=== PATIENT | female | born 1980 ===

== ENCOUNTER 2018-06-18 10:00 | Day surgery (SDC) | payer BC ==
[~2018-06-18 10:00] MED LIST: Dexamethasone 4 MG/ML 5 ML MDV ONE; HYDROmorphone 0.5 MG/0.5 ML Syringe ONE; Ketorolac 30 MG/ML SDV ONE; Lactated Ringers 1,000 ML IV SCH; Lactated Ringers 1,000 ML ONE; Lidocaine 1% 4 ML ONE; Lidocaine 1%/Sod Bicarbonate in NS 8.4% 1 ML Syringe IDERM PRN; Midazolam 1 MG/ML 2 ML SDV ONE; Ondansetron 4 MG/2 ML SDV ONE; Propofol 200 MG/20 ML SDV ONE; Rocuronium 50 MG/5 ML Vial ONE; Sodium Chloride 0.9% 10 ML Syringe FLUSH PRN; ceFAZolin 1 GM Vial ONE; fentaNYL 250 MCG/5 ML SDV ONE
[2018-06-18] MEDS ORDERED: Scopolamine 1.5 MG Transdermal Patch TRDERM ONE (10:56)
--- NOTE | 2018-06-18 10:57 | PCM.PREANE ---
Preanesthetic Assessment - Procedure Proposed Procedure: TVH - Anesthesia/Transfusion/Family Hx Anesthesia History: No Prior Anesthesia (patient states she gets motions sickness easily) Family History of Anesthesia Reaction: No Transfusion History: No Prior Transfusion(s) - Review of Systems General: No Symptoms Pulmonary: No Symptoms Cardiovascular: Other (HTN- has not taken her BP med for 3 days ) Gastrointestinal: No Symptoms Neurological: No Symptoms Other: Reports: Anxiety - Physical Assessment NPO Status Date: 06/17/18 NPO Status Time: 21:00 Pulse: 90 O2 Sat by Pulse Oximetry: 97 Respiratory Rate: 16 Blood Pressure: 169/94 Temperature: 37.3 C Height: 1.5 m Weight: 81 kg ASA Class: 2 Mental Status: Alert & Oriented x3 Airway Class: Mallampati = 1 Dentition: Reports: Normal Dentition Thyro-Mental Finger Breadths: 3 Mouth Opening Finger Breadths: 3 ROM/Head Extension: Full Lungs: Clear to Auscultation, Normal Respiratory Effort Cardiovascular: Regular Rate, Regular Rhythm - Lab Values: Laboratory Last Values Urine HCG, Qual Negative (NEGATIVE) 06/18/18 10:12 - Allergies Allergies/Adverse Reactions: Allergies Allergy/AdvReac Type Severity Reaction Status Date / Time No Known Allergies Allergy Verified 06/17/18 14:44 - Blood Blood Available: No Product(s) Available: None - Anesthesia Plan Pre-Op Medication Ordered: None - Acknowledgements Anesthesia Type Planned: General Anesthesia (OETT, scopolamine patch ordered ) Pt an Appropriate Candidate for the Planned Anesthesia: Yes Alternatives and Risks of Anesthesia Discussed w Pt/Guardian: Yes Pt/Guardian Understands and Agrees with Anesthesia Plan: Yes PreAnesthesia Questionnaire HEENT History: Reports: Impaired Vision, Other (See Below) Other HEENT History: Wears glasses Cardiovascular History: Reports: Hypertension Respiratory History: Reports: None Gastrointestinal History: Reports: None Genitourinary History: Reports: None DANCE HALL HOST/HOSTESS History: Reports: None Musculoskeletal History: Reports: None Neurological History: Reports: None Psychiatric History: Reports: None Endocrine/Metabolic History: Reports: None Hematologic History: Reports: None Immunologic History: Reports: None Oncologic (Cancer) History: Reports: None Dermatologic History: Reports: None - Past Surgical History Head Surgeries/Procedures: Reports: None Cardiovascular Surgical History: Reports: None Respiratory Surgical History: Reports: None GI Surgical History: Reports: None Female Surgical History: Reports: None Male Surgical History: Reports: None Endocrine Surgical History: Reports: None Neurological Surgical History: Reports: None Musculoskeletal Surgical History: Reports: None Oncologic Surgical History: Reports: None - SUBSTANCE USE Smoking Status *Q: Never Smoker Second Hand Smoke Exposure: No Recreational Drug Use History: No - HOME MEDS Home Medications: Home Meds Lisinopril/Hydrochlorothiazide [Lisinopril-Hctz 20-25 mg Tab] 1 tab PO DAILY [History] - CURRENT (IN HOUSE) MEDS Current Meds: Current Medications Lactated Ringer's (Ringers, Lactated) 1,000 mls @ 125 mls/hr IV ASDIRECTED TRENT Stop: 06/18/18 22:00 Lidocaine/Sodium Bicarbonate (Buffered Lidocaine 1% In Ns 8.4%) 0.25 ml IDERM ONETIME PRN PRN Reason: Prior to IV Start Stop: 06/18/18 18:00 Sodium Chloride (Saline Flush) 10 ml FLUSH ASDIRECTED PRN PRN Reason: Keep Vein Open Stop: 06/18/18 18:00 Discontinued Medications Cefazolin Sodium (Ancef) Confirm Administered Dose 2 gm .ROUTE .STK-MED ONE Stop: 06/18/18 08:43 Dexamethasone (Dexamethasone) Confirm Administered Dose 20 mg .ROUTE .STK-MED ONE Stop: 06/18/18 08:43 Fentanyl (Sublimaze) Confirm Administered Dose 250 mcg .ROUTE .STK-MED ONE Stop: 06/18/18 08:44 Hydromorphone HCl (Dilaudid) Confirm Administered Dose 0.5 mg .ROUTE .STK-MED ONE Stop: 06/18/18 08:43 Lidocaine HCl (Xylocaine-Mpf 1%) Confirm Administered Dose 4 mls @ as directed .ROUTE .STK-MED ONE Stop: 06/18/18 08:43 Lactated Ringer's (Ringers, Lactated) Confirm Administered Dose 1,000 mls @ as directed .ROUTE .STK-MED ONE Stop: 06/18/18 08:43 Ketorolac Tromethamine (Toradol) Confirm Administered Dose 30 mg .ROUTE .STK- MED ONE Stop: 06/18/18 08:43 Midazolam HCl (Versed 1 Mg/Ml) Confirm Administered Dose 2 mg .ROUTE .STK-MED ONE Stop: 06/18/18 08:43 Ondansetron HCl (Zofran) Confirm Administered Dose 4 mg .ROUTE .STK-MED ONE Stop: 06/18/18 08:43 Propofol (Diprivan 20 Ml) Confirm Administered Dose 200 mg .ROUTE .STK-MED ONE Stop: 06/18/18 08:43 Rocuronium [place] (Zemuron) Confirm Administered Dose 50 mg .ROUTE .STK-MED ONE Stop: 06/18/18 08:43
[2018-06-18] MEDS ORDERED: Propofol 200 MG/20 ML SDV ONE (12:47)
[2018-06-18] MEDS: Sodium Chloride 0.9% 50 ML SDV ONE ×2 (13:00→13:24)
[2018-06-18] MEDS: Lidocaine 1% with EPINEPHrine 1:100,000 20 ML MDV ONE ×2 (13:00→13:23)
[2018-06-18] MEDS ORDERED: Ketamine 500 mg/10 ML MDV ONE (13:18)
[2018-06-18] MEDS ORDERED: HYDROmorphone 0.5 MG/0.5 ML Syringe ONE (13:18)
[2018-06-18] MEDS ORDERED: Haloperidol Lactate 5 MG/ML SDV IVPUSH ONE (13:32)
[2018-06-18] MEDS ORDERED: diphenhydrAMINE 50 MG/ML SDV IVPUSH PRN (13:32)
[2018-06-18] MEDS ORDERED: fentaNYL 100 MCG/2 ML SDV IVPUSH PRN (13:32)
[2018-06-18] MEDS ORDERED: HYDROmorphone 0.5 MG/0.5 ML SYRINGE IV PRN (13:32)
[2018-06-18] MEDS ORDERED: Meperidine 50 MG/ML Vial IVPUSH PRN (13:32)
[2018-06-18] MEDS ORDERED: fentaNYL 250 MCG/5 ML SDV ONE (14:15)
[2018-06-18] MEDS ORDERED: Lactated Ringers 1,000 ML ONE (14:47)
--- NOTE | 2018-06-18 15:22 | PCM.POSTAN ---
POST ANESTHESIA ASSESSMENT - MENTAL STATUS Mental Status: Somnolent - VITAL SIGNS Pulse Rate: 77 SaO2: 98 Resp Rate: 8 Blood Pressure: 120/68 Temperature: 36.3 C - RESPIRATORY Respiratory Status: Respiratory Rate WNL, Airway Patent, O2 Saturation Stable, Supplemental Oxygen - CARDIOVASCULAR CV Status: Pulse Rate WNL, Blood Pressure Stable - GASTROINTESTINAL GI Status: No Symptoms - PAIN Pain Score: 0 - POST OP HYDRATION Hydration Status: Adequate & Stable - OBSERVATIONS Free Text/Narrative:: no anesthesia complications noted
--- NOTE | 2018-06-18 15:43 | PCM.OPNOTE ---
- General Post-Op/Procedure Note Date of Surgery/Procedure: 06/18/18 Operative Procedure(s): Transvaginal hysterectomy, bilateral salpingectomy, anterior and posterior repair and transvaginal tape mid urethral sling Findings: Overall normal-appearing cervix, uterus and tubes. Visualized portions of the ovaries were normal with cysts present within the ovaries bilaterally. Cystocele and rectocele on exam. Pre Op Diagnosis: Abnormal uterine bleeding with menorrhagia, pelvic organ prolapse, cystocele and rectocele and stress urinary incontinence Post-Op Diagnosis: Same Anesthesia Technique: General ET Tube Primary Surgeon: Gómez Lozano Anesthesia Provider: Lucho Burgos Industrial Furnace Fabricator: Pedro Chauhan Industrial Furnace Fabricator: Chely Knowles Reason Industrial Furnace Fabricator Was Necessary: Assist with retraction and reduction of morbidity and mortality Role of Industrial Furnace Fabricator: Retraction and visualization of structures Pathology: Cervix, uterus and bilateral fallopian tubes Fluid Replacement, Intraop: 2,100 Output, Urine Amount: 125 EBL in mLs: 400 Complications: None Condition: Good Free Text/Narrative:: Intake & Output 06/18/18 06/18/18 06/18/18 06:59 14:59 22:59 Output Total 125 Balance -125 Procedure in detail: The patient was seen in the preoperative holding area and risks, benefits, indications, and alternatives of the procedure were reviewed with the patient and she desired to proceed with a total vaginal hysterectomy, bilateral salpingectomy, anterior and posterior repair and mid urethral sling. Consents were signed. The patient was given general anesthesia with an endotracheal tube that was placed without difficulty. The patient was placed in dorsal lithotomy position , prepped, and draped in normal sterile fashion. A weighted speculum was placed into the vagina and the anterior lip of the cervix was grasped with the single-tooth tenaculum. A second single-tooth tenaculum was used to grasp the entirety of the cervix. The cervix was injected circumferentially with 0.25% lidocaine with epinephrine. The cervix was circumferentially incised with a scalpel. The bladder was dissected off the pubovesical cervical fascia anteriorly with Garcia scissors. The posterior cul-de-sac was entered sharply without difficulty using Garcia scissors. A Morales clamp was placed over the uterosacral ligaments on the patient's left side. These were transected and suture ligated with 0-Monocryl suture. This was repeated on the patient's right side. Hemostasis was assured. The cardinal ligaments were then clamped on both sides with Enseal vessel sealing device, transected, and ligated with the device. The uterine arteries and broad ligament were then serially clamped with Enseal vessel sealing device, transected, and ligated with the device on both sides. Excellent hemostasis was visualized on the patient's right side. One of the pedicles had bleeding on the patient's left side and this was clamped with a Jhonatan clamp and suture ligated with 0 Monocryl. The cornua were clamped bilaterally with Morales clamps, transected, and the uterus delivered. These pedicles were suture ligated using 0-Monocryl with excellent hemostasis. The left fallopian tube was then visualized and grasped using a Pato clamp and was dissected from the underlying tissue using Enseal vessel sealing device. Hemostasis was noted. The fallopian tube on the patient's right side was visualized and grasped with a [place] clamp and the tube was then excised from the underlying tissue using the Enseal vessel sealing device. Hemostasis was noted on bilateral sides after removal of the bilateral fallopian tubes. The posterior vaginal cuff was closed with running locked sutures of 0- Monocryl. Attention was then turned to the anterior posterior repair portion of the procedure and there was noted to be a grade 2 cystocele and grade 2 rectocele. The vaginal mucosa overlying the bladder was grasped using Allis clamps and was injected using 0.25% lidocaine with epinephrine. The mucosa was then excised in a triangular fashion using a Garcia scissors. The lateral sides of the bladder the mucosa was undermined using Garcia scissors. The vesicovaginal fascia was then reapproximated using 0-Monocryl suture with box sutures. The edges of the vaginal mucosa was trimmed further using Garcia scissors. The incision was closed using 3-0 Monocryl sutures in a running locked fashion. The anterior and posterior vaginal cuff was closed with running sutures in a horizontal fashion with 0-Monocryl. An Allis clamp was placed approximately 2 cm below the urethral opening. A second Allis clamp was placed 2 cm below the first Allis clamp. The vaginal mucosa was then injected with 0.25% lidocaine with epinephrine. A scalpel was used to make a midline incision through the vaginal mucosa. Garcia scissors were used to dissect the vaginal mucosa from the underlying tissue on the patient's right side. This was carried out to the pubic rami. This was repeated on the left side and completed without difficulty. Attention was then turned to the patient's mons and the skin was injected with 0.25% lidocaine with epinephrine and bilateral sides up proximally 2 cm from midline. A stab incision was made with a scalpel bilateral sides without complications. The urethral sling hook was then used on the patient's left side and placed through the stab incision and with a finger in the vagina behind the pubic rami, the tip of the hook was felt and then directed out through the midline vaginal incision. The transobturator tape was attached to the hook and pulled through the incision. Attention was then turned to the patient's right side where, again, the transobturator pigtail hook was placed through the stab incision and with a finger in the vagina was directed posterior to the lateral pubic rami and directed through the vaginal incision. The other end of the tape was attached to the hook and pulled through, making sure that the tape was flat on the patient's incision. A Garcia scissors was used to allow for a tension-free placement of the tape. The ends of the tape were then cut at the level of the skin on the patient on both sides at the stab incisions. Attention was then turned to the midline incision, which was closed using 3-0 Monocryl in a running fashion. The skin incisions were closed using Dermabond glue. The rectal vaginal mucosa was then grasped using Allis clamps and injected with 0.25% lidocaine with epinephrine and this was excised using a scalpel and Garcia scissors. The mucosa was dissected off of the underlying rectum and the rectovaginal fascia was reapproximated using box sutures of 0-Monocryl suture. The incision was then closed using 3-0 Monocryl suture in a running locked fasihion to the hymenal ring and then the remaining portion was closed in running fashion. Vaginal exam had good support of the bladder and rectum. The procedure was complete at this time. All instruments were removed from the vagina. The patient was awoken and taken to the PACU for recovery in stable condition. Sponge, lap, needle, and instrument counts were correct x 2.
[2018-06-18] MEDS ORDERED: Ondansetron 4 MG/2 ML SDV IVPUSH PRN (15:58)
[2018-06-18] MEDS ORDERED: Acetaminophen/oxyCODONE 325-5 MG Tab PO PRN ×2 (16:51)
[2018-06-18] MEDS: Ketorolac 15 MG/ML SDV IVPUSH SCH ×2 (18:23→23:24)
[2018-06-18] MEDS: Lactated Ringers 1,000 ML IV SCH (20:44)
[2018-06-18] MEDS: Docusate Sodium 100 MG Cap PO SCH (20:45)
[2018-06-19] MEDS: Ketorolac 15 MG/ML SDV IVPUSH SCH (04:44)
[2018-06-19] MEDS: Lactated Ringers 1,000 ML IV SCH (04:49)
--- NOTE | 2018-06-19 08:08 | PCM.SN ---
- Free Text/Narrative Note: Post Op Note Subjective: Patient reports feeling well overall. Pain minimal and controlled with oral medications. Reports that she is only having some mild pelvic cramping. Tolerating regular diet. Reports feeling increased rectal pressure like she has to pass flatus but has not been able to pass flatus. Voiding without difficulty. Ambulating without difficulty. Objective: Vitals Vital Signs - 24 hr 06/18/18 06/18/18 06/18/18 10:00 10:56 15:14 Temperature 37.3 C Temperature [ 37.3 C 36.3 C Temporal] Pulse, 90 Peripheral Pulse, 90 77 Peripheral [ Left Pulse Oximetry] Respiratory 16 16 8 L Rate Blood Pressure 169/94 H Blood Pressure 169/94 H 120/68 [Right Upper Arm] O2 Sat by Pulse 97 97 98 Oximetry O2 Sat by Pulse Oximetry [ Simple Mask] 06/18/18 06/18/18 06/18/18 15:22 15:26 15:30 Temperature 36.3 C Temperature [ 36.5 C Temporal] Pulse, 77 Peripheral Pulse, 82 Peripheral [ Left Pulse Oximetry] Respiratory 8 L 8 L 10 L Rate Blood Pressure 120/68 Blood Pressure 139/94 H [Right Upper Arm] O2 Sat by Pulse 98 98 99 Oximetry O2 Sat by Pulse 98 Oximetry [ Simple Mask] 06/18/18 06/18/18 06/18/18 15:40 15:45 16:00 Temperature Temperature [ 36.4 C 36.4 C Temporal] Pulse, Peripheral Pulse, 99 97 Peripheral [ Left Pulse Oximetry] Respiratory 17 13 Rate Blood Pressure Blood Pressure 125/87 120/71 [Right Upper Arm] O2 Sat by Pulse 95 94 L Oximetry O2 Sat by Pulse 95 Oximetry [ Simple Mask] 06/18/18 06/18/18 06/18/18 16:10 16:30 16:31 Temperature Temperature [ 36.9 C Temporal] Pulse, 88 91 Peripheral Pulse, 78 Peripheral [ Left Pulse Oximetry] Respiratory 16 Rate Blood Pressure 126/72 123/75 Blood Pressure 118/70 [Right Upper Arm] O2 Sat by Pulse 94 L 93 L 91 L Oximetry O2 Sat by Pulse Oximetry [ Simple Mask] 06/18/18 06/18/18 06/18/18 16:41 17:02 17:31 Temperature Temperature [ Temporal] Pulse, 92 92 97 Peripheral Pulse, Peripheral [ Left Pulse Oximetry] Respiratory Rate Blood Pressure 144/86 H 148/94 H Blood Pressure [Right Upper Arm] O2 Sat by Pulse 86 L 93 L 95 Oximetry O2 Sat by Pulse Oximetry [ Simple Mask] 06/18/18 06/18/18 06/18/18 18:24 18:31 18:59 Temperature Temperature [ Temporal] Pulse, 91 93 Peripheral Pulse, Peripheral [ Left Pulse Oximetry] Respiratory Rate Blood Pressure 158/100 H 157/92 H 157/88 H Blood Pressure [Right Upper Arm] O2 Sat by Pulse 97 96 Oximetry O2 Sat by Pulse Oximetry [ Simple Mask] 06/18/18 06/18/18 06/18/18 20:52 20:58 23:30 Temperature 36.9 C 36.9 C Temperature [ Temporal] Pulse, 108 H 101 H Peripheral Pulse, Peripheral [ Left Pulse Oximetry] Respiratory 16 16 Rate Blood Pressure 150/94 H Blood Pressure 158/92 H [Right Upper Arm] O2 Sat by Pulse 93 L 94 L Oximetry O2 Sat by Pulse Oximetry [ Simple Mask] 06/19/18 04:43 Temperature 37.1 C Temperature [ Temporal] Pulse, 107 H Peripheral Pulse, Peripheral [ Left Pulse Oximetry] Respiratory 18 Rate Blood Pressure 157/85 H Blood Pressure [Right Upper Arm] O2 Sat by Pulse 96 Oximetry O2 Sat by Pulse Oximetry [ Simple Mask] I/O: Intake & Output 06/18/18 06/19/18 06/19/18 22:59 06:59 14:59 Intake Total 2490 2127 Output Total 125 2975 Balance 2365 -848 Intake: Intake, Oral Amount 390 700 Oral Fluids 150 700 Intake, IV Amount 2100 1427 Ringers, Lactated 1,000 1427 ML @ 125 mls/hr IV ASDIRECTED [facility] Rx#: [id number] Output: Output, Urine Amount 125 2975 Other: Dinner Percent Consumed 100 Total, Intake Amount 150 700 Total, Output Amount 2675 Gen: No acute distress, alert and oriented Lungs: Clear to auscultation bilaterally Heart: Regular rate and rhythm Abdomen: Soft, minimal appropriate tenderness, nondistended, bowel sounds positive Pelvic: Minimal amount of bleeding present on astrid-pad Laboratory Tests 06/18/18 06/18/18 06/19/18 Range/Units 10:12 10:35 05:50 WBC 14.53 H (3.98-10.04) K/mm3 RBC 3.33 L (3.98-5.22) M/mm3 Hgb 9.5 L (11.2-15.7) gm/L Hct 29.3 L (34.1-44.9) % MCV 88.0 (79.4-94.8) fl MCH 28.5 (25.6-32.2) pg MCHC 32.4 (32.2-35.5) g/dl RDW Std Deviation 43.7 (36.4-46.3) fL Plt Count 293 (182-369) K/mm3 MPV 9.0 L (9.4-12.3) fl Neut % (Auto) 81.2 H (34.0-71.1) % Lymph % (Auto) 11.6 L (19.3-51.7) % [place] % (Auto) 6.8 (4.7-12.5) % Eos % (Auto) 0.1 L (0.7-5.8) Baso % (Auto) 0.1 (0.1-1.2) % Neut # (Auto) 11.81 H (1.56-6.13) K/mm3 Lymph # (Auto) 1.68 (1.18-3.74) K/mm3 [place] # (Auto) 0.99 H (0.24-0.36) K/mm3 Eos # (Auto) 0.01 L (0.04-0.36) K/mm3 Baso # (Auto) 0.01 (0.01-0.08) K/mm3 Urine HCG, Qual Negative (NEGATIVE) Blood Type O POSITIVE Gel Antibody Screen Negative Assesment/Plan: 38-year-old with abnormal uterine bleeding with menorrhagia, cystocele and rectocele and stress urinary incontinence status post transvaginal hysterectomy , bilateral salpingectomy, anterior and posterior repair and TVT mid urethral sling POD #1 Doing well No concerns at this time Routine post op care Discontinue IV fluids Monitor vitals Anticipate discharge home today Gómez Lozano MD 8:06 AM 06/19/2018
--- NOTE | 2018-06-19 08:12 | PCM.DCSUM1 ---
Discharge Summary - Hospital Course Free Text/Narrative:: 38-year-old with abnormal uterine bleeding with menorrhagia, cystocele and rectocele and stress urinary incontinence status post transvaginal hysterectomy , bilateral salpingectomy, anterior and posterior repair and TVT mid urethral sling. HPI Initial Comments: 38-year-old with abnormal uterine bleeding with menorrhagia, cystocele and rectocele and stress urinary incontinence status post transvaginal hysterectomy , bilateral salpingectomy, anterior and posterior repair and TVT mid urethral sling. Brief History: 38-year-old with abnormal uterine bleeding with menorrhagia, cystocele and rectocele and stress urinary incontinence status post transvaginal hysterectomy, bilateral salpingectomy, anterior and posterior repair and TVT mid urethral sling. Diagnosis: Stroke: No - Discharge Data Discharge Date: 06/19/18 Discharge Disposition: Home, Self-Care 01 Condition: Good - Discharge Diagnosis/Problem(s) (1) Abnormal uterine bleeding (AUB) SNOMED Code(s): 66247911328163, [id number] ICD Code: N93.9 - ABNORMAL UTERINE AND VAGINAL BLEEDING, UNSPECIFIED Status : Acute Current Visit: Yes (2) Stress incontinence of urine SNOMED Code(s): 04612304 ICD Code: N39.3 - STRESS INCONTINENCE (FEMALE) (MALE) Status: Acute Current Visit: Yes (3) Cystocele with rectocele SNOMED Code(s): 811407117 ICD Code: N81.10 - CYSTOCELE, UNSPECIFIED; N81.6 - RECTOCELE Status: Acute Current Visit: Yes (4) S/P vaginal hysterectomy SNOMED Code(s): 386799302, 235387695 ICD Code: Z90.710 - ACQUIRED ABSENCE OF BOTH CERVIX AND UTERUS Status: Acute Current Visit: Yes - Patient Summary/Data Operative Procedure(s) Performed: Transvaginal hysterectomy, bilateral salpingectomy, anterior and posterior repair and transvaginal tape mid urethral sling Complications: None Consults: None Hospital Course: Patient underwent a transvaginal hysterectomy, bilateral salpingectomy, anterior and posterior repair and TVT mid urethral sling on 06/18/2018. She was kept for extended recovery following the surgery due to distance from the hospital as well as monitoring for urination. Patient did well following the procedure and had some minor nausea but was able to tolerate a regular diet. She was not able to void initially following the surgery and had a straight catheter 1. She was unable to void without difficulty and had decreasing amount of blood within the urine with each subsequent void. She was ambulating without difficulty. Her pain was able to be controlled with oral medications. She denied any fevers or chills. She had not passed flatus but felt pressure like she was going to pass flatus. She desired to be discharged home on the morning of postoperative day #1. She will follow-up in the clinic in 2-3 weeks or earlier as needed. - Patient Instructions Diet: Regular Diet as Tolerated Activity: Apply Ice, As Tolerated, No Lifting Over 25 Pounds Driving: Do Not Drive (While on narcotic medications) Showering/Bathing: May Shower, No Tub Bathing/Swimming (For 48 hours) Wound/Incision Care: Keep Operative Site/Wound Site Clean and Dry Notify Provider of: Fever, Increased Pain, Swelling and Redness, Drainage, Nausea and/or Vomiting Other/Special Instructions: Please contact our office if you have heavy vaginal bleeding enough to soak a pad in less than an hour. Also monitor urine output and if you're not able to urinate despite feeling a strong urge please contact our office. - Discharge Plan *PRESCRIPTION DRUG MONITORING PROGRAM REVIEWED*: Yes *COPY OF PRESCRIPTION DRUG MONITORING REPORT IN PATIENT JAISON: Yes Prescriptions/Med Rec: Acetaminophen/oxyCODONE [Percocet 325-5 MG] 1 - 2 tab PO Q6H PRN #20 tablet PRN Reason: Pain Ibuprofen 600 mg PO Q6H PRN #60 tablet PRN Reason: Pain Home Medications: Home Meds Lisinopril/Hydrochlorothiazide [Lisinopril-Hctz 20-25 mg Tab] 1 tab PO DAILY [History] Acetaminophen/oxyCODONE [Percocet 325-5 MG] 1 - 2 tab PO Q6H PRN #20 tablet [Rx] Docusate Sodium [Colace] 100 mg PO BID cap 06/19/18 [Rx] Ibuprofen 600 mg PO Q6H PRN #60 tablet 06/19/18 [Rx] Patient Handouts: Urethral Vaginal Sling, Anterior and Posterior Colporrhaphy, Vaginal Hysterectomy, Care After Referrals: Gómez Lozano MD [Physician] - (Follow-up for postop check in 2-3 weeks or earlier as needed.) - Discharge Summary/Plan Comment DC Time >30 min.: No - Patient Data Vitals - Most Recent: Last Vital Signs Temp 37.1 C 06/19/18 04:43 Pulse 107 H 06/19/18 04:43 Resp 18 06/19/18 04:43 BP 157/85 H 06/19/18 04:43 Pulse Ox 96 06/19/18 04:43 Weight - Most Recent: 81 kg I&O - Last 24 hours: Intake & Output 06/18/18 06/19/18 06/19/18 22:59 06:59 14:59 Intake Total 2490 2127 Output Total 125 2975 Balance 2365 -848 Lab Results - Last 24 hrs: Laboratory Results - last 24 hr 06/18/18 06/18/18 06/19/18 Range/Units 10:12 10:35 05:50 WBC 14.53 H (3.98-10.04) K/mm3 RBC 3.33 L (3.98-5.22) M/mm3 Hgb 9.5 L (11.2-15.7) gm/L Hct 29.3 L (34.1-44.9) % MCV 88.0 (79.4-94.8) fl MCH 28.5 (25.6-32.2) pg MCHC 32.4 (32.2-35.5) g/dl RDW Std Deviation 43.7 (36.4-46.3) fL Plt Count 293 (182-369) K/mm3 MPV 9.0 L (9.4-12.3) fl Neut % (Auto) 81.2 H (34.0-71.1) % Lymph % (Auto) 11.6 L (19.3-51.7) % [place] % (Auto) 6.8 (4.7-12.5) % Eos % (Auto) 0.1 L (0.7-5.8) Baso % (Auto) 0.1 (0.1-1.2) % Neut # (Auto) 11.81 H (1.56-6.13) K/mm3 Lymph # (Auto) 1.68 (1.18-3.74) K/mm3 [place] # (Auto) 0.99 H (0.24-0.36) K/mm3 Eos # (Auto) 0.01 L (0.04-0.36) K/mm3 Baso # (Auto) 0.01 (0.01-0.08) K/mm3 Urine HCG, Qual Negative (NEGATIVE) Blood Type O POSITIVE Gel Antibody Screen Negative Med Orders - Current: Current Medications Docusate Sodium (Colace) 100 mg PO BID TRENT Last Admin: 06/18/18 20:45 Dose: 100 mg Hydrochlorothiazide (Hydrochlorothiazide) 25 mg PO DAILY [facility] Lactated Ringer's (Ringers, Lactated) 1,000 mls @ 125 mls/hr IV ASDIRECTED TRENT Last Admin: 06/19/18 04:49 Dose: 125 mls/hr Lisinopril (Prinivil) 20 mg PO DAILY [facility] Ondansetron HCl (Zofran) 4 mg IVPUSH Q6H PRN PRN Reason: Nausea Last Admin: 06/18/18 16:50 Dose: 4 mg Oxycodone/Acetaminophen (Percocet 325-5 Mg) 1 tab PO Q4H PRN PRN Reason: Pain (moderate 4-6) Last Admin: 06/18/18 20:45 Dose: 1 tab Oxycodone/Acetaminophen (Percocet 325-5 Mg) 2 tab PO Q4H PRN PRN Reason: Pain (severe 7-10) Discontinued Medications Cefazolin Sodium (Ancef) Confirm Administered Dose 2 gm .ROUTE .STK-MED ONE Stop: 06/18/18 08:43 Dexamethasone (Dexamethasone) Confirm Administered Dose 20 mg .ROUTE .STK-MED ONE Stop: 06/18/18 08:43 Diphenhydramine HCl (Benadryl) 25 mg IVPUSH Q6H PRN PRN Reason: Pruritis Stop: 06/18/18 16:00 Fentanyl (Sublimaze) Confirm Administered Dose 250 mcg .ROUTE .STK-MED ONE Stop: 06/18/18 08:44 Fentanyl (Sublimaze) 50 mcg IVPUSH Q5M PRN PRN Reason: Pain Stop: 06/18/18 16:00 Last Admin: 06/18/18 16:10 Dose: 50 mcg Fentanyl (Sublimaze) Confirm Administered Dose 250 mcg .ROUTE .STK-MED ONE Stop: 06/18/18 14:16 Haloperidol Lactate (Haldol) 1 mg IVPUSH ONETIME ONE Stop: 06/18/18 13:33 Last Admin: 06/18/18 18:10 Dose: Not Given Hydromorphone HCl (Dilaudid) Confirm Administered Dose 0.5 mg .ROUTE .STK-MED ONE Stop: 06/18/18 08:43 Hydromorphone HCl (Dilaudid) Confirm Administered Dose 0.5 mg .ROUTE .STK-MED ONE Stop: 06/18/18 13:19 Hydromorphone HCl (Dilaudid) 0.5 mg IV ASDIRECTED PRN PRN Reason: Severe Pain Stop: 06/18/18 18:00 Lactated Ringer's (Ringers, Lactated) 1,000 mls @ 125 mls/hr IV ASDIRECTED TRENT Stop: 06/18/18 22:00 Last Admin: 06/18/18 10:30 Dose: 125 mls/hr Lidocaine HCl (Xylocaine-Mpf 1%) Confirm Administered Dose 4 mls @ as directed .ROUTE .STK-MED ONE Stop: 06/18/18 08:43 Lactated Ringer's (Ringers, Lactated) Confirm Administered Dose 1,000 mls @ as directed .ROUTE .STK-MED ONE Stop: 06/18/18 08:43 Lactated Ringer's (Ringers, Lactated) Confirm Administered Dose 1,000 mls @ as directed .ROUTE .STK-MED ONE Stop: 06/18/18 14:48 Ketamine HCl (Ketalar) Confirm Administered Dose 500 mg .ROUTE .STK-MED ONE Stop: 06/18/18 13:19 Ketorolac Tromethamine (Toradol) Confirm Administered Dose 30 mg .ROUTE .STK- MED ONE Stop: 06/18/18 08:43 Ketorolac Tromethamine (Toradol) 15 mg IVPUSH Q6H [facility] Stop: 06/19/18 04:52 Last Admin: 06/19/18 04:44 Dose: 15 mg Lidocaine/Epinephrine (Xylocaine 1% With Epinephrine 1:100,000) Confirm Administered Dose 20 ml .ROUTE .STK-MED ONE Stop: 06/18/18 12:24 Last Admin: 06/18/18 13:00 Dose: 10 ml Lidocaine/Sodium Bicarbonate (Buffered Lidocaine 1% In Ns 8.4%) 0.25 ml IDERM ONETIME PRN PRN Reason: Prior to IV Start Stop: 06/18/18 18:00 Last Admin: 06/18/18 10:29 Dose: 0.25 ml Meperidine HCl (Meperidine) 12.5 mg IVPUSH ONETIME PRN PRN Reason: Shivering Stop: 06/18/18 18:00 Midazolam HCl (Versed 1 Mg/Ml) Confirm Administered Dose 2 mg .ROUTE .STK-MED ONE Stop: 06/18/18 08:43 Ondansetron HCl (Zofran) Confirm Administered Dose 4 mg .ROUTE .STK-MED ONE Stop: 06/18/18 08:43 Propofol (Diprivan 20 Ml) Confirm Administered Dose 200 mg .ROUTE .STK-MED ONE Stop: 06/18/18 08:43 Propofol (Diprivan 20 Ml) Confirm Administered Dose 600 mg .ROUTE .STK-MED ONE Stop: 06/18/18 12:48 Rocuronium [place] (Zemuron) Confirm Administered Dose 50 mg .ROUTE .STK-MED ONE Stop: 06/18/18 08:43 Scopolamine (Transderm-Scop) 1.5 mg TRDERM Q72H ONE Stop: 06/18/18 10:57 Last Admin: 06/18/18 11:17 Dose: 1.5 mg Sodium Chloride (Saline Flush) 10 ml FLUSH ASDIRECTED PRN PRN Reason: Keep Vein Open Stop: 06/18/18 18:00 Sodium Chloride (Normal Saline) Confirm Administered Dose 50 ml .ROUTE .STK-MED ONE Stop: 06/18/18 12:24 Last Admin: 06/18/18 13:00 Dose: 30 ml
[2018-06-19] MEDS: Docusate Sodium 100 MG Cap PO SCH (08:56)
[2018-06-19] MEDS ORDERED: Lisinopril 20 MG Tab PO SCH (09:00)
[2018-06-19] MEDS ORDERED: Hydrochlorothiazide 25 MG Tab PO SCH (09:00)
== END 2018-06-19 12:55 | disposition home or self-care (01) ==
LOC: JD.SDS 10:00 → JD.MS 18:04 → JD.SDS 06-19 12:55
PROVIDERS: ATTEND Obstetrics & Gynecology
DX: N93.9 Abnormal uterine and vaginal bleeding, unspecified (principal); N92.0 Excessive and frequent menstruation with regular cycle; N81.89 Other female genital prolapse; N81.10 Cystocele, unspecified; N81.6 Rectocele; N39.3 Stress incontinence (female) (male)
CPT/HCPCS: 36415; 51798; 57260; 57288; 58262; 81025; 85025; 86850; 86900; 86901; 87077; 87086; A9270; C1771; J0690; J1100; J1170; J1885; J2250; J2405; J2704; J3010; J7120; 00944; 51701; J2001